=== PATIENT | male | born 1995 | race Caucasian/White ===

== ENCOUNTER 2021-07-02 08:01 | Emergency (ER) | payer OTHER ==
[~2021-07-02] VITALS: Ht 190.5 cm; Wt 105.6 kg
--- NOTE | 2021-07-02 10:35 | PHYS DOC ---
Past Medical History Additional Past Medical Histor: pneumomediastinum (LEXY WOOD) Past Surgical History: No Surgical History (LEXY WOOD) Smoking Status: Never Smoker Alcohol Use: Occasionally Drug Use: None (LEXY WOOD) General Adult EDM: Chief Complaint: SHORTNESS OF BREATH HPI: HPI: Patient is a 25 year old male who presents with shortness of breath, epigastric pain, nausea, vomiting, bloody stool. Patient reports that shortness of breath began approximately 8 months ago and is largely unchanged. His other symptoms began approximately 2 months ago. Patient also reports associated weight loss of approximately 50 pounds over the same time period. Patient states he was seen at [place] emergency department and was told he had a "tear in his esophagus." At that time, he was told he was going to be transferred to [facility], but that did not happen and he was discharged home with oral antibiotics. Patient denies having been given a referral for gastroenterology or any other specialties. He presents today because his symptoms have not improved. He reports medication compliance with the antibiotics that he was prescribed. Patient denies fever, chills, night sweats, chest pain, palpitations, cough. (LEXY WOOD) Review of Systems: Review of Systems: Constitutional: See HPI Eyes: Denies change in visual acuity, visual field deficits or discharge HENT: Denies ear pain, nasal congestion or sore throat Respiratory: See HPI Cardiovascular: See HPI GI: See HPI : Denies dysuria or hematuria Musculoskeletal: Denies back pain or joint pain Integument: Denies rash or other skin lesion Neurologic: Denies headache, focal weakness or sensory changes (LEXY WOOD) Heart Score: C/O Chest Pain: No (LEXY WOOD) Allergies: Allergies: Allergies Coded Allergies Type Severity Reaction Last Updated Verified No Known Drug Allergies 07/02/21 No (LEXY WOOD) Physical Exam: PE: Constitutional: Well developed, well nourished, no acute distress, non-toxic appearance. HENT: Normocephalic, atraumatic, bilateral external ears normal, oropharynx moist, no oral exudates, nose normal. Eyes: EOMI, conjunctiva normal, no discharge. Neck: Normal range of motion, no tenderness, trachea midline, supple, no stridor. Cardiovascular: Heart rate regular rhythm, no murmur. Lungs & Thorax: Bilateral breath sounds clear to auscultation. Abdomen: Bowel sounds normal, soft, no tenderness, no masses, no pulsatile masses. Skin: Warm, dry, no erythema, no rash. Back: No stepoff, no tenderness, no CVA tenderness. Extremities: No tenderness, no cyanosis, no clubbing, ROM intact, no edema. Neurologic: Alert and oriented x4, no focal deficits noted. (LEXY WOOD) Current Patient Data: Labs: Laboratory Tests Test 07/02/21 11:27 07/02/21 11:30 07/02/21 11:48 White Blood Count 7.1 x10^3/uL (4.0-11.0) Red Blood Count 3.37 x10^6/uL (4.30-5.70) Hemoglobin 8.7 g/dL (13.0-17.5) Hematocrit 27.0 % (39.0-53.0) Mean Corpuscular Volume 80 fL (79-100) Mean Corpuscular Hemoglobin 26 pg (25-35) Mean Corpuscular Hemoglobin Concent 32 g/dL (31-37) Red Cell Distribution Width 14.6 % (11.5-14.5) Platelet Count 341 x10^3/uL (140-400) Neutrophils (%) (Auto) 59 % (31-73) Lymphocytes (%) (Auto) 27 % (24-48) Monocytes (%) (Auto) 9 % (0-9) Eosinophils (%) (Auto) 5 % (0-3) Basophils (%) (Auto) 1 % (0-3) Neutrophils # (Auto) 4.2 x10^3/uL (1.8-7.7) Lymphocytes # (Auto) 1.9 x10^3/uL (1.0-4.8) Monocytes # (Auto) 0.6 x10^3/uL (0.0-1.1) Eosinophils # (Auto) 0.3 x10^3/uL (0.0-0.7) Basophils # (Auto) 0.0 x10^3/uL (0.0-0.2) Sodium Level 141 mmol/L (136-145) Potassium Level 4.8 mmol/L (3.5-5.1) Chloride Level 104 mmol/L (98-107) Carbon Dioxide Level 25 mmol/L (21-32) Anion Gap 12 (6-14) Blood Urea Nitrogen 9 mg/dL (8-26) Creatinine 0.9 mg/dL (0.7-1.3) Estimated GFR (Cockcroft-Gault) 104.6 BUN/Creatinine Ratio 10 (6-20) Glucose Level 96 mg/dL (70-99) Lactic Acid Level 0.8 mmol/L (0.4-2.0) Calcium Level 8.4 mg/dL (8.5-10.1) Total Bilirubin 0.2 mg/dL (0.2-1.0) Aspartate Amino Transf (AST/SGOT) 18 U/L (15-37) Alanine Aminotransferase (ALT/SGPT) 14 U/L (16-63) Alkaline Phosphatase 63 U/L (46-116) Total Protein 7.4 g/dL (6.4-8.2) Albumin 2.4 g/dL (3.4-5.0) Albumin/Globulin Ratio 0.5 (1.0-1.7) SARS-CoV-2 Antigen (Rapid) Negative (NEGATIVE) Urine Collection Type Unknown Urine Color Yellow Urine Clarity Clear Urine pH 5.5 (<5.0-8.0) Urine Specific Stanley 1.025 (1.000-1.030) Urine Protein Negative mg/dL (NEG-TRACE) Urine Glucose (UA) Negative mg/dL (NEG) Urine Ketones (Stick) Negative mg/dL (NEG) Urine Blood Negative (NEG) Urine Nitrite Negative (NEG) Urine Bilirubin Negative (NEG) Urine Urobilinogen Dipstick 0.2 mg/dL (0.2 mg/dL) Urine Leukocyte Esterase Negative (NEG) Urine RBC Occ /HPF (0-2) Urine WBC Occ /HPF (0-4) Urine Squamous Epithelial Cells Occ /LPF Urine Bacteria 0 /HPF (0-FEW) Urine Mucus Slight /LPF Vital Signs: Vital Signs Date Time Temp Pulse Resp B/P (MAP) Pulse Ox O2 Delivery O2 Flow Rate FiO2 07/02/21 10:06 80 16 160/72 (101) 100 07/02/21 09:50 98.2 73 18 147/91 (109) 100 Room Air 98.2 (LEXY WOOD) Radiology/Procedures: Radiology/Procedures: PROCEDURE: CHEST PA & LATERAL EXAM: Chest, 2 views. HISTORY: Pneumomediastinum. COMPARISON: 06/05/2021 FINDINGS: 2 views of the chest are obtained. There is no infiltrate, pleural effusion or pneumothorax. The previously described in the mediastinum is not clearly seen. The heart is normal in size. IMPRESSION: No acute pulmonary finding. Electronically signed by: Vivi Escobar MD (07/02/2021 11:21 AM) [id number] (LEXY WOOD) Course & Med Decision Making: Course & Med Decision Making Pertinent Labs and Imaging studies reviewed. (See chart for details) Patient presents with persistent symptoms after being diagnosed with pneumomediastinum and placed on PO clindamycin. Will perform sepsis workup and obtain plain films of the chest. I spoke to Dr. Narayanan with general surgery service, who was consulted on the patient's initial presentation at [facility] ED. He continues to advise transfer to a facility that has cardiothoracic surgery availability. Several facilities were contacted including [facility], [facility], [facility], [facility], and [facility]. Spoke to Mr. Higginbotham with [facility] transfer center. He advised following up on an outpatient basis with cardiothoracic surgeons. Due to imaging study findings, many facilities are refusing transfer of his lower acuity level. Patient provided with cardiothoracic outpatient information for follow up as well as a list of facilities that have cardiothoracic care capabilities. Patient given strict return precautions. He understands and is agreeable to discharge plan. Case was discussed periodically with Dr. Anaya in the department to update on possibility of patient transfer or follow up care. (LEXY WOOD) Course & Med Decision Making I have reviewed the PA/BATTERY REPAIRER's note and plan of care. I was available for consultation as needed during the patient's visit in the emergency department. Patient had a spontaneous pneumomediastinum and was placed on p.o. antibiotics. Has had persistent symptoms, but no evidence of deterioration or mediastinitis by history or objective findings. As above discussed with multiple hospitals, and ultimately with recommendation for outpatient cardiothoracic surgery follow-up, and was given a referral through [facility]. I feel this is an appropriate plan of care as long as the patient understands that if his symptoms worsen he returns to a cardiothoracic capable facility for reevaluation. Patient was provided with a l ist of facilities with these capabilities. (GUNNAR ANAYA MD) Matt Disclaimer: Matt Disclaimer: This electronic medical record was generated, in whole or in part, using a voice recognition dictation system. (LEXY WOOD) Departure Departure Impression: Primary Impression: Pneumomediastinum Disposition: HOME / SELF CARE / HOMELESS Condition: STABLE Referrals: NO PCP (PCP) MYRA GASTROINTESTINAL CONS Patient Instructions: Pneumomediastinum Additional Instructions: You should contact cardiothoracic surgery evaluation follow up at your earliest convenience. Listed below is information for an office in [place], [place] who I spoke to today. [address] [place] [address] [facility] in [place], [place] also has cardiothoracic surgery services available in outpatient basis as well. Return to the emergency department if your symptoms worsen or you develop any new ones. Scripts Ondansetron (ONDANSETRON ODT) 4 Mg Tab.rapdis 1 TAB PO PRN Q6-8HRS, #20 TAB Prov: LEXY WOOD 07/02/21 LEXY WOOD Jul 02, 2021 10:35 GUNNAR ANAYA MD Jul 02, 2021 18:02
--- NOTE | 2021-07-02 11:23 | RAD ---
EXAM: Chest, 2 views. HISTORY: Pneumomediastinum. COMPARISON: 06/05/2021 FINDINGS: 2 views of the chest are obtained. There is no infiltrate, pleural effusion or pneumothorax . The previously described in the mediastinum is not clearly seen. The heart is normal in size. IMPRESSION: No acute pulmonary finding. Electronically signed by: Vivi Escobar MD (07/02/2021 11:21 AM) [id number]
[2021-07-02 11:47] LABS: BASO % 1 % (0-3); EOS # 0.3 x10^3/uL (0.0-0.7); EOS % 5 % (0-3); HEMOGLOBIN 8.7 g/dL (13.0-17.5); LYMPH # 1.9 x10^3/uL (1.0-4.8); LYMPH % 27 % (24-48); MEAN CORPUSCULAR HEMOGLOBIN 26 pg (25-35); MEAN CORPUSCULAR HGB CONC 32 g/dL (31-37); MEAN CORPUSCULAR VOLUME 80 fL (79-100); MONO # 0.6 x10^3/uL (0.0-1.1); MONO % 9 % (0-9); NEUT # 4.2 x10^3/uL (1.8-7.7); NEUT % 59 % (31-73); PLATELET COUNT 341 x10^3/uL (140-400); RED BLOOD COUNT 3.37 x10^6/uL (4.30-5.70); RED CELL DISTRIBUTION WIDTH 14.6 % (11.5-14.5); WHITE BLOOD COUNT 7.1 x10^3/uL (4.0-11.0)
[2021-07-02 12:05] LABS: CALCIUM 8.4 mg/dL (8.5-10.1); CREATININE 0.9 mg/dL (0.7-1.3); GFR 104.6; POTASSIUM 4.8 mmol/L (3.5-5.1)
[2021-07-02 12:09] LABS: BILIRUBIN,URINE NEGATIVE (NEG); CLARITY,URINE CLEAR; COLOR,URINE YELLOW; NITRITE,URINE NEGATIVE (NEG); PH,URINE 5.5 (<5.0-8.0); PROTEIN,URINE NEGATIVE (NEG-TRACE); UROBILINOGEN,URINE 0.2 mg/dL (0.2 mg/dL)
[2021-07-02 12:09] LABS: ALBUMIN 2.4 g/dL (3.4-5.0); TOTAL PROTEIN 7.4 g/dL (6.4-8.2)
[2021-07-02 12:10] LABS: ALBUMIN/GLOBULIN RATIO 0.5 (1.0-1.7); TOTAL BILIRUBIN 0.2 mg/dL (0.2-1.0)
[2021-07-02 12:42] LABS: BACTERIA,URINE 0 /HPF (0-FEW); RBC,URINE OCC /HPF (0-2); WBC,URINE OCC /HPF (0-4)
[2021-07-02] MEDS ORDERED: ONDA4TAB12 PO (16:31)
[2021-07-02 17:11] VITALS: BP 124/86
== END 2021-07-02 17:11 | disposition home or self-care (01) ==
LOC: ER 08:01
DX: J98.2 Interstitial emphysema (principal); Z20.822 Contact with and (suspected) exposure to COVID-19
CPT/HCPCS: 36415; 71046; 80053; 81001; 83605; 85025; 87040; 87426; 99285; U0003; U0005

== ENCOUNTER → 2021-08-27 | Outpatient (CLI) | payer OTHER ==
[~2021-08-27] MED LIST: ONDA4TAB12 PO
--- NOTE | 2021-08-27 16:55 | KCIC ---
XR CHEST 2V INDICATION: SOA, PNEUMOMEDIASTINUM . COMPARISON STUDY: None. FINDINGS: Lungs: Normal lung volume. No pulmonary mass or consolidation. The tracheobronchial tree and hilar st ructures are normal. Pleura: No pleural effusion or pneumothorax. Heart and Mediastinum: The cardiomediastinal silhouette is normal. The great vessels of the thorax ar e normal. Bones and Soft Tissues: The bones and soft tissues are within normal limits. IMPRESSION: No acute cardiopulmonary process. Electronically signed by: Brett Hendrix MD (08/27/2021 4:53 PM) [id number]
== END ==
LOC: KCIC 15:47
PROVIDERS: ATTEND Internal Medicine Gastroenterology
DX: R06.02 Shortness of breath (principal); J98.2 Interstitial emphysema
CPT/HCPCS: 71046